=== PATIENT | male | born 1980 | race American Indian/Alaskan Native ===

== ENCOUNTER 2018-06-29 21:15 | Emergency (ER) | payer OTHER ==
[2018-06-29 21:39] VITALS: BP 124/89
--- NOTE | 2018-06-29 23:19 | XRay Report ---
FINAL REPORT PROCEDURE: XR FINGER(S) 2+V LT TECHNIQUE: LEFT 1st and 2nd finger radiographs, including AP, lateral, and oblique views. HISTORY: thumb and index finger swelling and pain COMPARISON: No prior studies are available for comparison. FINDINGS: Fracture (s) and/or Dislocation(s): None . Alignment: Normal. Joint space(s): Normal . Soft tissues: Normal . Bone mineralization: Normal . Foreign bodies: None . IMPRESSION: Normal Examination
--- NOTE | 2018-06-30 01:53 | Emergency Department Report ---
ED Upper Extremity Inj HPI - General Chief Complaint: Extremity Injury, Upper Stated Complaint: LEFT HAND THUMB INJURY Time Seen by Provider: 06/30/18 01:42 Source: patient Mode of arrival: Ambulatory Limitations: No Limitations - History of Present Illness Initial Comments: Family history 9-year-old -[place] male who presents for left pain status post fingers versus was no laceration or abrasion of bleeding patient states strong swelling aching 6/10 pain relieved by nothing, pain exacerbated by palpation and range of motion is no numbness no tingling swelling the first joint MD Complaint: Injury to:: left Onset/Timin -: days(s) Other Extremity Injury: Fingers: Left (thumb and index ) Other Injuries: none Handedness: right Place: home Severity scale (0 -10): 5 Improves With: none Worsens With: movement of extremity Context: direct blow Associated Symptoms: denies other symptoms - Related Data Previous Rx's Medication Instructions Recorded Last Taken Type HYDROcodone/APAP 5-325 [[place] 1 each PO Q6HR PRN #14 tablet 05/05/16 Unknown Rx 5/325] Cyclobenzaprine [Flexeril] 10 mg PO TID PRN #30 tablet 06/30/18 Unknown Rx Naproxen [Naprosyn] 500 mg PO BID PRN #30 tablet 06/30/18 Unknown Rx Allergies Allergy/AdvReac Type Severity Reaction Status Date / Time No Known Allergies Allergy Unverified 05/04/16 22:25 ED Review of Systems ROS: Stated complaint: LEFT HAND THUMB INJURY Other details as noted in HPI Constitutional: denies: chills, fever Eyes: denies: eye pain, eye discharge, vision change ENT: denies: ear pain, throat pain Respiratory: denies: cough, shortness of breath, wheezing Cardiovascular: denies: chest pain, palpitations Endocrine: no symptoms reported Gastrointestinal: denies: abdominal pain, nausea, diarrhea Genitourinary: denies: urgency, dysuria Musculoskeletal: joint swelling, myalgia Skin: denies: rash, lesions Neurological: denies: headache, weakness, paresthesias Psychiatric: denies: anxiety, depression Hematological/Lymphatic: denies: easy bleeding, easy bruising ED Past Medical Hx - Past Medical History Previous Medical History?: No - Surgical History Past Surgical History?: No - Social History Smoking Status: Current Every Day Smoker Substance Use Type: Alcohol - Medications Home Medications: Home Medications Medication Instructions Recorded Confirmed Last Taken Type HYDROcodone/APAP 5-325 [[place] 1 each PO Q6HR PRN #14 tablet 05/05/16 Unknown Rx 5/325] Cyclobenzaprine [Flexeril] 10 mg PO TID PRN #30 tablet 06/30/18 Unknown Rx Naproxen [Naprosyn] 500 mg PO BID PRN #30 tablet 06/30/18 Unknown Rx ED Physical Exam - General Limitations: No Limitations General appearance: alert, in no apparent distress - Head Head exam: Present: atraumatic, normocephalic - Eye Eye exam: Present: normal appearance - ENT ENT exam: Present: mucous membranes moist - Neck Neck exam: Present: normal inspection - Respiratory Respiratory exam: Present: normal lung sounds bilaterally. Absent: respiratory distress - Cardiovascular Cardiovascular Exam: Present: regular rate, normal rhythm. 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 Absent: pedal edema, calf tenderness - Expanded Upper Extremity Exam Left Hand Wrist exam: Present: tenderness, swelling (left dorsal thumb no erythema mild swelling no ecchymosis no fever. no subungqual hematoma ). Absent: abrasion, laceration, ecchymosis, deformity, crepidus, dislocation, erythema, amputation, nail avulsion, subungual hematoma Neuro motor exam: Present: wrist extension intact, thumb opposition intact, thumb IP flexion intact, thumb adduction intact, fingers 2-5 abduction intact Neurosensory exam: Present: 2-point discrimination, radial nerve intact, ulnar nerve intact, median nerve intact Vascular: Present: normal capillary refill, radial pulse, brachial pulse, ulnar pulse. Absent: vascular compromise, Pallo, pulse deficit radial art, pulse deficit ulnar art, pulse deficit brachial art - Back Exam Back exam: Present: normal inspection, full ROM. Absent: tenderness, CVA tenderness (R), paraspinal tenderness, vertebral tenderness - Neurological Exam Neurological exam: Present: alert, oriented X3, CN II-XII intact, normal gait, reflexes normal - Psychiatric Psychiatric exam: Present: normal affect, normal mood - Skin Skin exam: Present: warm, dry, intact, normal color. Absent: rash ED Course Vital Signs 06/29/18 21:35 Temperature 98.2 F Pulse Rate 87 Respiratory 20 Rate Blood Pressure 124/89 O2 Sat by Pulse 98 Oximetry ED Medical Decision Making - Radiology Data Radiology results: report reviewed, image reviewed no fracture mild soft tissue swelling - Medical Decision Making Left thumb sprain no fracture mild soft tissue swelling . X-ray mild pain on axial loading without snuffbox tenderness plan thumb spica Velcro NSAIDs muscle relaxants followed with in 2-3 days patient verbalizes understanding and agreement with same. Will be DC'd home in stable condition at this time Critical care attestation.: If time is entered above; I have spent that time in minutes in the direct care of this critically ill patient, excluding procedure time. ED Disposition Clinical Impression: Left thumb sprain Qualifiers: Encounter type: initial encounter Sprain of finger site: interphalangeal joint Qualified Code(s): S63.622A - Sprain of interphalangeal joint of left thumb, initial encounter Disposition: DC-01 TO HOME OR SELFCARE Is pt being admited?: No Does the pt Need Aspirin: No Condition: Good Instructions: Finger Sprain (ED) Prescriptions: Cyclobenzaprine [Flexeril] 10 mg PO TID PRN #30 tablet PRN Reason: Muscle Spasm Naproxen [Naprosyn] 500 mg PO BID PRN #30 tablet PRN Reason: pain Referrals: ALAINA QUISPE MD [Staff Physician] - 3-5 Days
[2018-06-30] MEDS ORDERED: ULTRAM PO ONE (02:01)
== END 2018-06-30 02:15 | disposition home or self-care (01) ==
LOC: ED 21:15
DX: S63.622A Sprain of interphalangeal joint of left thumb, initial encounter (principal); F17.200 Nicotine dependence, unspecified, uncomplicated; W22.8XXA Striking against or struck by other objects, initial encounter; Y93.89 Activity, other specified; Y92.89 Other specified places as the place of occurrence of the external cause; Y99.8 Other external cause status

== ENCOUNTER 2020-02-29 14:04 | Emergency (ER) | payer SELFPAY ==
--- NOTE | 2020-02-29 14:44 | XRay Report ---
CHEST 1 VIEW INDICATION: Chest Pain. COMPARISON: None. FINDINGS: Support devices: None. Heart: Within normal limits. Lungs/Pleura: No acute air space or interstitial disease. Additional findings: None. IMPRESSION: No acute abnormality. Signer Name: Eduardo Foster MD Signed: 02/29/2020 2:40 PM Workstation Name: [id number]
[2020-02-29] MEDS ORDERED: SODIUM CHLORIDE 0.9% 1000 ML 1,000 ML IV ONE (15:01)
--- NOTE | 2020-02-29 15:01 | Emergency Department Report ---
ED Chest Pain HPI - General Chief Complaint: Chest Pain Stated Complaint: HEADACHE, SOB, CHEST PAIN Time Seen by Provider: 02/29/20 14:50 Source: patient Mode of arrival: Ambulatory Limitations: No Limitations - History of Present Illness Initial Comments: 39 YO WHITE MALE COMES TO ER CO SOB, HEADACHE FOR SEVERAL DAYS. CP TO MID CHEST X 1 WEEK AND DIZZINESS. NO FEVER OR CHILLS. DID NOT SEE PCP. TAKING NOTHING AT HOME. TO ER VIA POV AND IN NAD VS NORMAL IN TRIAGE PT CONCERNED HE HAS COVID HE COMES WITH HIS WHO IS ALSO A PT TODAY NO KNOWN EXPOSURE TO COVID POS PT - Related Data Previous Rx's Medication Instructions Recorded Last Taken Type HYDROcodone/APAP 5-325 [[place] 1 each PO Q6HR PRN #14 tablet 05/05/16 Unknown Rx 5/325] Cyclobenzaprine [Flexeril] 10 mg PO TID PRN #30 tablet 06/30/18 Unknown Rx Naproxen [Naprosyn] 500 mg PO BID PRN #30 tablet 06/30/18 Unknown Rx Allergies Allergy/AdvReac Type Severity Reaction Status Date / Time No Known Allergies Allergy Unverified 05/04/16 22:25 Heart Score - HEART Score History: Slightly suspicious EKG: Normal Age: < 45 Risk factors: No known risk factors Troponin: < normal limit HEART Score: 0 ED Review of Systems ROS: Stated complaint: HEADACHE, SOB, CHEST PAIN Other details as noted in HPI Comment: All other systems reviewed and negative ED Past Medical Hx - Past Medical History Previous Medical History?: No - Surgical History Past Surgical History?: No - Family History Family history: no significant, other (MOM AND DAD A/W) - Social History Smoking Status: Current Every Day Smoker Substance Use Type: Alcohol, Marijuana - Medications Home Medications: Home Medications Medication Instructions Recorded Confirmed Last Taken Type HYDROcodone/APAP 5-325 [[place] 1 each PO Q6HR PRN #14 tablet 05/05/16 Unknown Rx 5/325] Cyclobenzaprine [Flexeril] 10 mg PO TID PRN #30 tablet 06/30/18 Unknown Rx Naproxen [Naprosyn] 500 mg PO BID PRN #30 tablet 06/30/18 Unknown Rx ED Physical Exam - General Limitations: No Limitations General appearance: alert, in no apparent distress - Head Head exam: Present: atraumatic, normocephalic - Eye Eye exam: Present: normal appearance - ENT ENT exam: Present: mucous membranes moist - Neck Neck exam: Present: normal inspection - Respiratory Respiratory exam: Present: normal lung sounds bilaterally. Absent: respiratory distress - Cardiovascular Cardiovascular Exam: Present: regular rate, normal rhythm. Absent: systolic murmur, diastolic murmur, rubs, gallop - GI/Abdominal GI/Abdominal exam: Present: soft, normal bowel sounds - Rectal Rectal exam: Present: deferred - Extremities Exam Extremities exam: Present: normal inspection - Back Exam Back exam: Present: normal inspection - Neurological Exam Neurological exam: Present: alert, oriented X3 - Psychiatric Psychiatric exam: Present: normal affect, normal mood - Skin Skin exam: Present: warm, dry, intact, normal color. Absent: rash ED Course Vital Signs 02/29/20 14:11 Temperature 98.2 F Pulse Rate 116 H Respiratory 20 Rate Blood Pressure 130/90 O2 Sat by Pulse 100 Oximetry DACIA score - Dacia Score Age > 65: (0) No Aspirin use within the Past 7 Days: (0) No 3 or more CAD Risk Factors: (0) No 2 or more Angina events in past 24 hrs: (0) No Known CAD with more than 50% Stenosis: (0) No Elevated Cardiac Markers: (0) No ST Deviation Greater than 0.5mm: (0) No DACIA Score: 0 ED Medical Decision Making - Lab Data Result diagrams: 02/29/20 14:50 02/29/20 14:50 - EKG Data -: EKG Interpreted by Ks EKG shows normal: sinus rhythm Rate: tachycardia - Radiology Data Radiology results: report reviewed, image reviewed - Medical Decision Making Vital Signs 02/29/20 14:11 Temperature 98.2 F Pulse Rate 116 H Respiratory 20 Rate Blood Pressure 130/90 O2 Sat by Pulse 100 Oximetry VS on exam HR 100 Labs 02/29/20 02/29/20 14:50 14:50 WBC 7.7 RBC 4.87 Hgb 14.0 Hct 41.9 MCV 86 MCH 29 MCHC 34 RDW 14.3 Plt Count 245 Lymph % (Auto) 18.2 [place] % (Auto) 8.7 H Eos % (Auto) 0.2 Baso % (Auto) 0.9 Lymph # 1.4 Anderson # 0.7 Eos # 0.0 Baso # 0.1 Seg Neutrophils % 72.0 H Seg Neutrophils # 5.6 Sodium 137 Potassium 3.9 Chloride 102.2 Carbon Dioxide 23 Anion Gap 16 BUN 16 Creatinine 0.9 Estimated GFR > 60 BUN/Creatinine Ratio 18 Glucose 102 H Calcium 9.2 Troponin T < 0.010 1L NS WHILE IN ER LABS/XRAY NORMAL PT BEING DC HOME WITH DC POC AND REFERRAL FOR COVID TESTING. NO HYPOXIA. NO FEVER. NO PNA. AMBULATORY. TAKING PO. - Differential Diagnosis ro acs/ ro pna Critical care attestation.: If time is entered above; I have spent that time in minutes in the direct care of this critically ill patient, excluding procedure time. ED Disposition Clinical Impression: URTI (acute upper respiratory infection) Disposition: DC-01 TO HOME OR SELFCARE Is pt being admited?: No Does the pt Need Aspirin: No Condition: Stable Instructions: Upper Respiratory Infection (ED) Additional Instructions: STAY WELL HYDRATED TYLENOL FOR FEVER OR PAIN DIET TOLERATED AVOID CIG/ALCOHOL AND WEED FOLLOW UP AT [facility] TESTING [facility] IF YOU WANT DEFINITIVE TESTING XRAY AND LABS ARE NORMAL TODAY REFERRAL TO PCP IS GIVEN BELOW Referrals: EDUAR ABDUL MD [Staff Physician] - 3-5 Days Time of Disposition: 15:37
[2020-02-29 15:18] LABS: Basophils # (Auto) 0.1 K/mm3 (0.0-0.1); Basophils % (Auto) 0.9 % (0.0-1.8); Eosinophils % (Auto) 0.2 % (0.0-4.3); Hematocrit 41.9 % (35.5-45.6); Lymphocytes # (Auto) 1.4 K/mm3 (1.2-5.4); Lymphocytes % (Auto) 18.2 % (13.4-35.0); Mean Corpuscular HGB Conc 34 % (32-34); Mean Corpuscular Volume 86 fl (84-94); Monocytes # (Auto) 0.7 K/mm3 (0.0-0.8); Monocytes % (Auto) 8.7 % (0.0-7.3); Platelet Count 245 K/mm3 (140-440); Red Blood Count 4.87 M/mm3 (3.65-5.03); Red Cell Distribution Width 14.3 % (13.2-15.2)
[2020-02-29 15:39] LABS: BUN/Creatinine Ratio 18; Blood Urea Nitrogen 16 mg/dL (9-20); Calcium 9.2 mg/dL (8.4-10.2); Hemolysis Index 4
[2020-02-29 16:53] VITALS: BP 125/63
== END 2020-02-29 17:12 | disposition home or self-care (01) ==
LOC: ED 14:04
DX: J06.9 Acute upper respiratory infection, unspecified (principal); F17.200 Nicotine dependence, unspecified, uncomplicated; R42 Dizziness and giddiness; F12.10 Cannabis abuse, uncomplicated; Z79.899 Other long term (current) drug therapy
CPT/HCPCS: 36415; 71045; 80048; 84484; 85025; 93005; 93010; 96360; 99284; J7030